=== PATIENT | male | born 1995 | race African-American/Black ===

== ENCOUNTER 2020-06-21 09:58 | Emergency (ER) | payer SELFPAY ==
[2020-06-21] MEDS ORDERED: Hydrocodone-Acetamin 15 ML UDCUP ONE (10:29)
[2020-06-21] MEDS ORDERED: Lidocaine Viscous Sol 2% 15 ml UD Cup ONE (10:30)
[2020-06-21] MEDS ORDERED: Mag-Al Plus 1200 MG/1200 MG/120 MG/30 ML UDCUP ONE (10:30)
[2020-06-21] MEDS ORDERED: Dexamethasone 10 MG/ML VIAL ONE (10:30)
== END 2020-06-21 12:01 | disposition home or self-care (01) ==
LOC: CSHERS 09:58
DX: J02.9 Acute pharyngitis, unspecified (principal)
CPT/HCPCS: 87081; 87430; 99283; J1100

== ENCOUNTER 2020-06-22 18:32 | Emergency (ER) | payer SELFPAY ==
[2020-06-23 16:20] LABS: SARS-CoV-2 PCR by NAA Not Detected (NotDetected)
== END 2020-06-22 19:53 | disposition home or self-care (01) ==
LOC: CSHERS 18:32
DX: R51.9 Headache, unspecified (principal); J02.9 Acute pharyngitis, unspecified; Z20.822 Contact with and (suspected) exposure to COVID-19; F17.210 Nicotine dependence, cigarettes, uncomplicated
CPT/HCPCS: 87635; 99283; U0003; U0005